=== PATIENT | female | born 1935 | race Caucasian/White ===

== ENCOUNTER 2019-10-30 17:06 | Inpatient (IN) ==
--- NOTE | 2019-10-30 18:22 | PROVIDER DOCUMENTATION ---
HPI-General Adult - General Chief Complaint: Altered Mental Status Stated Complaint: AMS,TIRED Time Seen by Provider: 10/30/19 17:54 Source: patient Allergies/Adverse Reactions: Patient Allergies Allergy/AdvReac Type Severity Reaction Status Date / Time cefaclor [From Ceclor] Allergy SWELLING Verified 10/30/19 17:44 sulfamethoxazole Allergy NAUSEA Verified 10/30/19 17:44 [From Bactrim] trimethoprim [From Bactrim] Allergy NAUSEA Verified 10/30/19 17:44 Home Medications: Home Medication List Medication Instructions Recorded Confirmed Last Taken Type Acetaminophen [Tylenol] 1,000 mg PO Q8H PRN PRN 02/12/18 10/30/19 1 Week Ago History ~02/12/18 Amlodipine [Norvasc] 2.5 mg PO QHS 02/12/18 10/30/19 10/29/19 History Aspirin 81 mg PO QHS 02/12/18 10/30/19 10/29/19 History Bimatoprost [Lumigan] 2.5 ml BOTH EYES QHS 02/12/18 10/30/19 10/29/19 History Calcium Carbonate/Vitamin D3 1 each PO DAILY 02/12/18 10/30/19 10/29/19 History [Oscal 500 + D] Cholecalciferol (Vit D3) [Vitamin 5,000 unit PO DAILY 02/12/18 10/30/19 02/18/18 History D3] Cyanocobalamin (Vitamin B-12) 2,500 mcg PO QHS 02/12/18 10/30/19 10/29/19 H istory [Vitamin B12] Dorzolamide HCl/Timolol Maleat 10 ml BOTH EYES BID 02/12/18 10/30/19 10/30/19 History [Cosopt Eye Drops] Loratadine [Claritin] 10 mg PO QHS 02/12/18 10/30/19 10/29/19 History Omeprazole [Prilosec] 20 mg PO DAILY@0700 02/12/18 10/30/19 10/29/19 History Tramadol [Ultram] 1 tab PO BID 02/12/18 10/30/19 10/29/19 History Mirtazapine [Remeron] 15 mg PO QHS 10/30/19 10/30/19 10/29/19 History Oxazepam 15 mg PO QHS 10/30/19 10/30/19 10/29/19 History Ramipril 5 mg PO QHS 10/30/19 10/30/19 10/29/19 History Rosuvastatin Calcium [Crestor] 10 mg PO QHS 10/30/19 10/30/19 10/29/19 History - History of Present Illness -Gen Adult Nature of Presenting Problems: 84 yr old F, presenting with complaints of AMS. Per the family at bedside, the pt has become increasingly confused over the past month; the family feels there has been an acute worsening in the past week; the pt was complaining of weakness, also noted some possible visual hallucinations on evening; Saturday, she was scheduled for a epidural steroid injection; she had an episode of atrial fibrillation that resolved spontaneously; she had f/u with her PCP after that, but because her confusion and weakness persisted, they called into the business development (they see Dr. Stephens). Dr. Stephens's FIELD MARKETING LEAD recommended they come into the ED today, particularly because Dr. Stephens is human resources operations director today. Onset/Duration: reports: 4 days ago Timing: reports: still present Associated Symptoms: reports: weakness Review of Systems - Adult - REVIEW OF SYSTEMS - ADULT Constitutional: reports: see HPI Eyes: reports: no symptoms reported Ears, Nose, Mouth & Throat: reports: no symptoms reported Cardiovascular: reports: see HPI Respiratory: reports: no symptoms reported Gastrointestinal: reports: no symptoms reported Genitourinary: reports: no symptoms reported Musculoskeletal: reports: see HPI Integumentary: reports: no symptoms reported Neurological: reports: see HPI Psychiatric: reports: no symptoms reported Past History - Adult - PAST MEDICAL HISTORY-ADULT Review of Records: reports: Nursing Assessment Review Cardiovascular: reports: aortic disease, HTN - PRIOR SURGERIES/PROCEDURES Surgical/Procedure History: reports: other - FAMILY HISTORY Family History: reviewed, not pertinent - SOCIAL HISTORY Living Situation: family Physical Exam-General - CONSTITUTIONAL General Appearance: alert, mild distress, thin - EYES Eyes: PERRL/EOMI - HEAD, EARS, NOSE, MOUTH & THROAT HENMT: normocephalic/atraumatic, moist mucous membranes - RESPIRATORY Respiratory: chest non-tender, lungs clear, normal breath sounds - CARDIOVASCULAR Cardiovascular: normal peripheral pulses, regular rate, rhythm - GASTROINTESTINAL (ABDOMEN) Abdominal Exam: normal bowel sounds, non tender, soft - MUSCULOSKELETAL Back Exam: other (paraspinal tenderness) Extremity: no pedal edema - SKIN Integumentary: warm/dry - NEUROLOGIC Neurologic: motor weakness. negative: facial droop, focal weakness - PSYCHIATRIC Psych/Mental Status: anxious, other (disoriented to time) Progress - PLAN OF CARE/RESULTS Progress/Plan/Lab Results: Vital Signs - 8 hr 10/30/19 17:21 Temperature 98.4 F Pulse Rate 94 H Respiratory Rate 16 Blood Pressure 146/69 O2 Sat by Pulse Oximetry 98 Orders Category Date Time Status CHEST-2 VIEWS [RAD] Stat Exams 10/30/19 18:[address] HEAD W/O CONTRAST [CT] Stat Exams 10/30/19 18:20 Ordered CBC WITH ELECTRONIC DIFF [HEME] Stat Lab 10/30/19 18:20 Uncollected CK PROFILE [SP CHEM] Stat Lab 10/30/19 18:20 Uncollected COMPREHENSIVE METABOLIC PANEL [CHEM] Stat Lab 10/30/19 18:20 Uncollected TROPONIN T Stat Lab 10/30/19 18:20 Uncollected URINALYSIS W/POSS RFLX CULT [URINALYSIS] Stat Lab 10/30/19 18:20 Uncollected EKG [EKG] Stat Ther 10/30/19 18:20 Ordered Result Diagrams: 10/30/19 19:13 10/30/19 19:13 - REASSESSMENT Reassessment #1 Time Reassessed: 21:15 (Spoke with Dr. Feng; he agrees to accept the pt for observation; he spoke with the pt at bedside, who agrees to stay for additional monitoring on telemetry. ) - CONSULTS/PCP/HOSPITALIST Notification #1 *Consult/PCP/Hospitalist*: Dr. Feng Consult Disposition: Admit Departure - Departure Date of Disposition Decision: 10/30/19 Time of Disposition Decision: 21:36 DIAGNOSIS: AMS (altered mental status) Qualifiers: Altered mental status type: disorientation Qualified Code(s): R41.0 - Disorientation, unspecified Disposition: ADMITTED INPATIENT 09 Certified Medical Emergency: Emergent Condition: Fair Referrals and Follow-Ups: Lino Henriquez MD [Primary Care Provider] - - Critical Care Note This patient required my direct & personal management of CC.: No Attestation - Physician/ MARIO Attestation Patient care was provided by Advanced Practice Provider:: No The physician spent face to face time with patient:: Yes Advanced Practice Provider documentation review:: Supervising physician onsite and consulted in the evaluation and care of this patient. The physician did have a face to face encounter with the patient.
--- NOTE | 2019-10-30 18:48 | Diag Imaging Result Doc PS360 ---
EXAM: CT HEAD W/O CONTRAST INDICATION: AMS TECHNIQUE: This exam was performed using automated exposure control, adjustment of mA or kV according to patient size, and/or use of iterative reconstruction technique. 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 There is no definite acute infarct given the limited sensitivity of CT versus MRI. There is no discrete intracranial mass, mass effect, or intracranial hemorrhage. The surrounding soft tissues and bony structures are essentially unremarkable. IMPRESSION: Stable chronic appearing white matter changes. No definite acute intracranial pathology by CT. Electronically signed by Miguelangel Gray 10/30/2019 6:46 PM
--- NOTE | 2019-10-30 19:06 | Diag Imaging Result Doc PS360 ---
EXAM: CHEST-2 VIEWS INDICATION: AMS TECHNIQUE: 2 views COMPARISON: 12/28/2014 FINDINGS: There is evidence of prior granulomatous disease, stable. The lungs are grossly clear. There is no discrete pleural fluid collection or pneumothorax. The cardiomediastinal silhouette and central vasculature are grossly unremarkable. IMPRESSION: No evidence of acute pathology by plain radiograph. Electronically signed by Miguelangel Gray 10/30/2019 7:04 PM
[2019-10-30 19:27] LABS: BASO# 0.04 X1000 (0.0-0.2); BASO% 0.2 % (0.0-0.8); EOS# 0.02 X1000 (0.0-0.7); EOS% 0.1 % (0.0-10.0); HEMATOCRIT 27.1 % (37.0-47.0); HEMOGLOBIN 8.5 g/dL (12.0-16.0); IMM GRAN# 0.84 X1000 (0.0-0.04); IMM GRAN% 4.2 % (0.0-0.5); LYMPH# 3.98 X1000 (1.2-3.4); LYMPH% 19.7 % (20.5-51.1); MCHC 31.4 g/dL (33-37); MCV 95.8 FL (81-99); MONO# 3.05 X1000 (0.11-0.59); MONO% 15.1 % (1.7-9.3); MPV 9.6 FL (7.4-10.4); NEUT# 12.29 X1000 (1.4-6.5); NEUT% 60.7 % (42.2-75.2); PLT 317 X1000 (130-400); RBC 2.83 XMIL (4.2-5.4); RDW 12.7 % (11.5-14.5); WBC 20.22 X1000 (4.8-10.8)
[2019-10-30 20:02] LABS: AGAP 14; ALB/GLOB RATIO 1.8; ALBUMIN 3.5 g/dL (3.5-5.0); ALKALINE PHOSPHATASE 70 U/L (32-104); BUN 29 mg/dL (8-22); CALCIUM 9.1 mg/dL (8.8-10.2); CHLORIDE 108 mmol/L (98-107); CK PROFILE 46 U/L (24-173); COSMO 294; CREATININE 1.3 mg/dL (0.5-0.9); ESTIMATED GFR 39; GLUCOSE 114 mg/dL (70-104); GOT 10 U/L (10-30); GPT 7 U/L (10-36); POTASSIUM 4.2 mmol/L (3.5-5.1); SODIUM 144 mmol/L (136-145); TCO2 22 mmol/L (25-35); TOTAL BILIRUBIN < 0.15 mg/dL (0.20-1.00); TOTAL PROTEIN 5.5 g/dL (6.3-8.3)
[2019-10-30 20:55] LABS: URINE SOURCE CLEAN CATCH
[2019-10-30 21:05] LABS: BILIRUBIN URINE NEGATIVE (NEGATIVE); BLOOD URINE NEGATIVE (NEGATIVE); COLOR YELLOW; GLUCOSE URINE NEGATIVE (NEGATIVE); KETONE URINE NEGATIVE (NEGATIVE); LEUKOCYTES URINE NEGATIVE (NEGATIVE); NITRITE URINE NEGATIVE (NEGATIVE); PROTEIN URINE TRACE mg/dL (NEGATIVE); SP GRAVITY URINE 1.023; TURBIDITY URINE CLEAR (CLEAR); UROBILINOGEN URINE NORMAL (NORMAL)
[2019-10-30 21:07] LABS: UR EPITHELIAL CELLS <10 /HPF (<10); URINE BACTERIA NEGATIVE /HPF; URINE RBC <10 /HPF (<10); URINE WBC <10 /HPF (<10)
[2019-10-30] MEDS ORDERED: NS 1,000 ML IV ONE (21:16)
[2019-10-30 21:32] LABS: ACETAMINOPHEN < 1.2 ug/mL (10-30); SALICYLATES < 3.00 mg/dL (3-10)
[2019-10-30 21:34] LABS: UR AMPHETAMINES QUAL NONE DETECTED (NONE DETECT); UR BARBITUATES QUAL NONE DETECTED (NONE DETECT); UR BENZODIAZEPIN QUAL NONE DETECTED (NONE DETECT); UR CANNABINOIDS QUAL NONE DETECTED (NONE DETECT); UR COCAINE QUAL NONE DETECTED (NONE DETECT); UR METHADONE QUAL NONE DETECTED (NONE DETECT); UR OPIATES QUAL NONE DETECTED (NONE DETECT); UR OXYCODONE QUAL NONE DETECTED (NONE DETECT); UR PCP QUAL NONE DETECTED (NONE DETECT)
--- NOTE | 2019-10-30 22:11 | EKG Report ---
Test Performed on : 10/30/2019 5:39:02 PM Test Reason : AMS Blood Pressure : / mmHG Vent. Rate : 089 BPM Atrial Rate : 089 BPM P-R Int : 162 ms QRS Dur : 066 ms QT Int : 340 ms P-R-T Axes : 028 -10 -09 degrees QTc Int : 413 ms Normal sinus rhythm. Normal ECG When compared with ECG of 22-JAN-2019 22:12, Criteria for Septal infarct are no longer present Nonspecific T wave abnormality no longer evident in Lateral leads Unconfirmed Result
[2019-10-30] MEDS ORDERED: DILAUDID IV ONE (22:32)
[2019-10-30] MEDS ORDERED: ATARAX PO ONE (22:32)
[2019-10-30] MEDS ORDERED: NORCO-5 PO PRN (23:38)
[2019-10-30] MEDS ORDERED: ZOFRAN IV PRN (23:38)
--- NOTE | 2019-10-31 01:03 | HISTORY AND PHYSICAL ---
PRIMARY CARE PHYSICIAN: Dr. Henriquez. CHIEF COMPLAINT: Confusion, episode of palpitation. HISTORY OF PRESENTING ILLNESS: This is an 84-year-old elderly female with a history of hypertension, hyperlipidemia, chronic low back pain and anxiety disorder, who had presented to the emergency department due to patient having some episodes of where she was confused and apparently it has been worsening and she was also complaining of having weakness. The patient recently had went for an epidural injection and at that time she was told that she was in atrial fibrillation. She had contacted her blindstitch hemmer who recommended the patient come to the hospital for further evaluation and management. At the time of my examination, patient denied any headache, fever, chills, chest pain, hemoptysis, melena, but complained of weakness and just not feeling well. PAST MEDICAL HISTORY: Includes hypertension, hyperlipidemia, chronic low back pain, anxiety. PAST SURGICAL HISTORY: Neck surgery, appendectomy, hysterectomy, cataract surgery, kidney surgery, tonsillectomy. ALLERGIES: Bactrim and cefaclor. CURRENT MEDICATIONS: Include amlodipine 2.5 mg p.o. at bedtime, aspirin 81 mg p.o. at bedtime, Lumigan 2.5 mL drops to each eye at bedtime, mirtazapine 50 mg p.o. at bedtime, omeprazole 20 mg p.o. daily, oxazepam 15 mg p.o. at bedtime, ramipril 5 mg p.o. at bedtime, rosuvastatin 10 mg p.o. at bedtime, tramadol 50 mg p.o. b.i.d. SOCIAL HISTORY: No history of smoking, alcohol or illicit drug use. FAMILY HISTORY: Positive for coronary artery disease in mother. REVIEW OF SYSTEMS: Fourteen point review of systems as listed in HPI. Other systems negative. PHYSICAL EXAMINATION: GENERAL: Cooperative, friendly female. She is resting more comfortably. However, she is complaining of still having back pain. VITAL SIGNS: Temperature 98.4 degrees, pulse 94, respirations 16, blood pressure 146/69. HEENT: Atraumatic, normocephalic. Extraocular movements intact. PERRLA. NECK: No masses. CHEST: Clear to auscultation. CARDIOVASCULAR: Regular rate and rhythm. ABDOMEN: Soft, positive bowel sounds. EXTREMITIES: No edema. NEUROLOGIC: She is awake, alert, oriented x2. GENITOURINARY: No bladder distention. SKIN: Warm. LABORATORIES AND STUDIES: WBCs 20.22, hemoglobin 8.5, hematocrit 27.1, platelets 317,000. Sodium 144, potassium 4.2, chloride 108, CO2 is 22, BUN is 29, creatinine is 1.3, glucose 114. Troponin 0.010. CT of the head shows stable chronic-appearing white matter changes, no definite acute intracranial pathology. Chest x-ray, no evidence of any acute pathology. ASSESSMENT: An 84-year-old elderly female with a history of hypertension, hyperlipidemia, chronic low back pain, who had presented to emergency department due to episodes of having confusion and worsening weakness. The patient also recently had an episode while she was getting epidural of some palpitations and suspected atrial fibrillation. She had contacted her blindstitch hemmer who recommended the patient to come to the hospital for further evaluation and management. 1. Generalized weakness. 2. Mild dehydration. 3. Episode of atrial fibrillation. 4. Leukocytosis probably from recent epidural injection. 5. Mild cognitive impairment. 6. Chronic low back pain. 7. Hypertension. PLAN: 1. We will admit patient to medical floor with telemetry. 2. Continue with supportive treatment with gentle hydration, antiemetics. 3. Continue with neuro checks. 4. Continue to monitor patient on telemetry, and consult Cardiology and repeat EKG in the morning. 5. We will give patient adequate pain control. 6. We will monitor her white blood cell count. 7. We will monitor blood pressure, resume antihypertensive agent. 8. Put patient on DVT prophylaxis with SCDs. 9. We will continue to follow, reassess and make further recommendation based on patient's clinical course. cc: MD Lino Wharton MD
[2019-10-31] MEDS: NS 1,000 ML IV SCH ×2 (01:20→13:33)
[2019-10-31] MEDS ORDERED: PRILOSEC PO SCH (07:00)
[2019-10-31 07:28] LABS: BASO# 0.02 X1000 (0.0-0.2); BASO% 0.1 % (0.0-0.8); EOS# 0.01 X1000 (0.0-0.7); EOS% 0.1 % (0.0-10.0); HEMATOCRIT 24.1 % (37.0-47.0); HEMOGLOBIN 7.3 g/dL (12.0-16.0); IMM GRAN% 4.6 % (0.0-0.5); LYMPH# 1.69 X1000 (1.2-3.4); LYMPH% 11.2 % (20.5-51.1); MCH 29.4 PG (27-31); MCHC 30.3 g/dL (33-37); MCV 97.2 FL (81-99); MONO# 3.29 X1000 (0.11-0.59); MONO% 21.7 % (1.7-9.3); MPV 9.7 FL (7.4-10.4); NEUT# 9.43 X1000 (1.4-6.5); NEUT% 62.3 % (42.2-75.2); PLT 259 X1000 (130-400); RBC 2.48 XMIL (4.2-5.4); RDW 12.6 % (11.5-14.5); WBC 15.14 X1000 (4.8-10.8)
[2019-10-31 07:35] LABS: CREATININE 0.9 mg/dL (0.5-0.9); POTASSIUM 3.6 mmol/L (3.5-5.1)
[2019-10-31 07:36] LABS: CALCIUM 6.9 mg/dL (8.8-10.2)
[2019-10-31 07:57] LABS: ANISOCYTOSIS 1+; LYMPHS 19 % (21-51); MONO 14 % (1-9); SEGS 67 % (42-75)
[2019-10-31] MEDS ORDERED: COSOPT OPHTH SOLN SCH (09:00)
[2019-10-31] MEDS ORDERED: OSCAL 500 + D PO SCH (09:00)
[2019-10-31] MEDS ORDERED: VITAMIN D PO SCH (09:00)
[2019-10-31 11:23] VITALS: BP 148/70
[2019-10-31 12:58] LABS: AGAP 11; ALB/GLOB RATIO 1.7; ALBUMIN 3.2 g/dL (3.5-5.0); ALKALINE PHOSPHATASE 59 U/L (32-104); BUN 18 mg/dL (8-22); CALCIUM 8.2 mg/dL (8.8-10.2); CHLORIDE 110 mmol/L (98-107); COSMO 281; ESTIMATED GFR 53; GLUCOSE 89 mg/dL (70-104); GOT 18 U/L (10-30); GPT 11 U/L (10-36); IRON SATURATION 22 %; POTASSIUM 4.2 mmol/L (3.5-5.1); SODIUM 140 mmol/L (136-145); TCO2 19 mmol/L (25-35); TIBC 251 ug/dL; TOTAL BILIRUBIN < 0.15 mg/dL (0.20-1.00); TOTAL IRON 56 ug/dL (49-151); TOTAL PROTEIN 5.1 g/dL (6.3-8.3); UNBOUND IRON 195 ug/dL (112-346)
[2019-10-31 14:10] LABS: FREE T4 1.15 ng/dL (0.93-1.70); TSH 3.11 uIUmL (0.27-4.20)
[2019-10-31 14:47] LABS: FERRITIN 65 ng/mL (13-150)
--- NOTE | 2019-10-31 15:37 | DISCHARGE SUMMARY ---
ADMISSION DATE: 10/30/2019 DISCHARGE DATE: 10/31/2019 ADMISSION DIAGNOSIS: 1. Confusion. 2. Episodes of palpitations. DISCHARGE DIAGNOSES: 1. Alteration of mental status, improving. 2. Questionable recent history of atrial fibrillation, resolved. 3. Leukocytosis secondary to recent epidural injection. 4. Anemia. 5. Chronic low back pain. 6. Hypertension. CONSULTATIONS: Dr. Stephens with Cardiology was consulted for further evaluation and management of questionable history of atrial fibrillation. PROCEDURES: 1. A chest x-ray was performed on 10/30/2019 which revealed no evidence of acute pathology. 2. CT scan of the head was performed on 10/30/2019 which revealed stable chronic appearing white matter changes. No definite acute intracranial pathology by CT. HISTORY AND PHYSICAL EXAMINATION: See admit note. PHYSICAL EXAMINATION PRIOR TO DISCHARGE: Temperature 97.7 degrees, heart rate 75, respirations 18, blood pressure is 148/70. General: No acute distress. Cardiovascular: Regular rate and rhythm. No significant murmurs, rubs, or gallops. Pulmonary: Clear to auscultation bilaterally. Abdomen: Soft, nontender, nondistended. Positive bowel sounds. Extremities: Moves all extremities well. No significant clubbing, cyanosis, or edema. Dermatologic: Evaluation reveals no evidence of rash. LABORATORY DATA: Prior to discharge. White blood cell count 15.14, hemoglobin 7.3, hematocrit 24.1, platelet count 259,000. Sodium 140, potassium 4.2, chloride 110, bicarb 19, BUN 18, creatinine 1.0, glucose 89, calcium 8.2, total bilirubin less than 0.15, total protein 5.1, albumin 3.2, alkaline phosphatase 59, AST 18, ALT 11. Total iron 56, percent saturation 22, UIBC 195, folate 5.8, TSH 3.11, free T4 is 1.15. HOSPITAL COURSE: Patient was admitted as per history and physical examination. Hospital course per condition is as follows. 1. Generalized weakness-upon admission, patient was noted to have generalized weakness. With IV hydration, patient's condition improved. Full evaluation was pursued as described above. Patient was found to have a considerable anemia. This will be addressed as noted below. 2. Anemia-upon admission to the hospital, patient was noted to have a moderate anemia. With IV hydration, patient's hemoglobin and hematocrit dropped. The patient has had no evidence of blood loss. She denies hematochezia or melena. Per report, her colonoscopy is up-to-date. The patient recently had an epidural procedure to her lumbar spine. There is no evidence of hematoma formation. Anemia panel was drawn. Patient was found to have both iron and folic acid deficiencies. The patient will be discharged home on folic acid and iron replacement. I have encouraged close followup with Dr. Henriquez. Stool evaluations may be warranted. 3. Mild dehydration-patient has achieved improvement with IV hydration. 4. Alteration of mental status-patient has baseline mild cognitive impairment. Recently, patient has experienced increasing symptoms. The question is raised whether this is secondary to anxiety, progressive dementia, or a combination. At this point, we will treat her underlying deficiencies as noted. We will defer further evaluation of her anxiety and memory loss to Dr. Henriquez as an outpatient. 5. Episode of atrial fibrillation-per report, this occurred just prior to her epidural injection. This resolved spontaneously. Dr. Stephens was consulted while hospitalized. Patient remained in a sinus-generated rhythm. She has outpatient followup arranged with him. We will defer management. 6. Leukocytosis-patient was noted to have a considerable leukocytosis without evidence of infection upon admission. This likely is secondary to her epidural injection. This will need to be followed as an outpatient as well. 7. Chronic low back pain-patient is status post epidural injection with some improvement. I have asked patient to avoid aspirin and nonsteroidal anti-inflammatory agents in the setting of a considerable anemia. She will continue as-needed tramadol. 8. Hypertension-patient was maintained on home medications while hospitalized. DISCHARGE CONDITION: Stable. DISPOSITION: Discharge to home. MEDICATIONS: 1. Lumigan eye drops at bedtime. 2. Calcium plus vitamin D once a day. 3. Vitamin B12 500 mcg at bedtime. 4. Cosopt eye drops twice daily. 5. Mirtazapine 15 mg at bedtime. 6. Omeprazole 20 mg daily. 7. Ramipril 5 mg at bedtime. 8. Rosuvastatin 10 mg at bedtime. 9. Acetaminophen 1000 mg every 8 hours as needed. 10. Amlodipine 2.5 mg at bedtime. 11. Colace 100 mg twice daily as needed. 12. Folic acid 1 mg daily. 13. Loratadine 10 mg at bedtime. 14. Iron sulfate 325 mg daily. 15. Oxazepam 15 mg at bedtime. FOLLOWUP: The patient is to follow up with Dr. Henriquez next week. cc: MD Lino Downing MD
[2019-10-31] MEDS ORDERED: REMERON PO SCH (21:00)
[2019-10-31] MEDS ORDERED: ASPIRIN PO SCH (21:00)
[2019-10-31] MEDS ORDERED: ALTACE PO SCH (21:00)
[2019-10-31] MEDS ORDERED: LUMIGAN 0.01% OPH SOLUTION BOTH EYES SCH (21:00)
[2019-10-31] MEDS ORDERED: CRESTOR PO SCH (21:00)
[2019-10-31] MEDS ORDERED: VITAMIN B-12 PO SCH (21:00)
--- NOTE | 2019-10-31 21:07 | CONSULTATION ---
DATE OF CONSULTATION: 10/31/2019 IMPRESSION: 1. Reported transient atrial fibrillation in orthopedic clinic more than a week ago. ECG tracings not available. Patient has been documented to be in sinus rhythm in Dr. Henriquez's office earlier this week and in sinus rhythm presently. There is no past history of atrial fibrillation. 2. Recent mild confusion. This apparently has been a chronic issue as patient has had some tendency for memory issues and mild confusion in the past. 3. Chronic fatigue. Previous noninvasive cardiovascular studies had demonstrated negative stress myocardial perfusion study and echocardiography showing normal left ventricular function with mild to moderate aortic regurgitation. 4. Anxiety disorder. 5. Hypertension. 6. Hyperlipidemia. RECOMMENDATIONS: 1. Given that patient has been consistently in sinus rhythm on telemetry observation and her symptoms of transient confusion are somewhat longstanding, it is reasonable for her to be discharged to home to have followup as an outpatient. 2. Given that atrial fibrillation has not been well documented, recommend continuing aspirin p.o. daily pending further clarification of the significance of the ECG strip reportedly obtained in orthopedic office 1 week ago. HISTORY: This 84-year-old white female with past history of hypertension, hyperlipidemia, anxiety disorder, mild to moderate aortic regurgitation and fatigue as well as chronic back disorder was admitted through emergency room yesterday p.m. after she presented relating some issues with inability to perform more complex tasks such as balancing checkbook. She had become concerned regarding the possibility of mini strokes given that a week ago she was told she appeared to be in atrial fibrillation transiently in orthopedic doctors office. She has no prior history of atrial fibrillation or palpitations. All previous ECGs available demonstrate sinus rhythm. She has chronic back disorder and was in the [facility] in [place] to have a back injection. She was thought to have atrial fibrillation and back injection was initially going to be postponed. However, after further review it was decided to go ahead and do back injection as her atrial fibrillation was no longer present. ECG strips of this visit are not available. She contacted her primary care physician Dr. Henriquez this past week and had followup in his office. Reportedly ECG in his office demonstrated normal sinus rhythm. She has been somewhat apprehensive over the past week regarding possibility of atrial fibrillation. She has had this chronic tendency for mild confusion, memory loss and occasional difficulty with complex tasks. The report has been some consideration of pursuing neurology consult regarding this. At any rate, she was observed to have some difficulty with balancing her checkbook and concerns were generated on part of the family regarding possible mini strokes. She notified our office and it was unclear as to what was going on. She was referred to the emergency room for evaluation. There has been no chest pain or palpitations. PAST MEDICAL HISTORY: 1. Chronic fatigue. 2. Anxiety disorder. 3. Mild to moderate aortic regurgitation. 4. Hypertension. 5. Hyperlipidemia. 6. Chronic lower back disorder with chronic low back pain. PAST SURGICAL HISTORY: Includes unspecified neck surgery, appendectomy, hysterectomy, cataract surgery, unspecified kidney surgery, tonsillectomy. ALLERGIES: She is allergic or intolerant to Bactrim and cefaclor. MEDICATIONS PRIOR TO ADMISSION: As listed. It is noteworthy that she recently was started on an anxiolytic oxazepam to be taken at bedtime for sleep. SOCIAL HISTORY: She does not smoke or use alcohol. FAMILY HISTORY: Negative for premature coronary disease. REVIEW OF SYSTEMS: Pulmonary: Negative. Gastrointestinal: Negative. Constitutional: Negative. Remainder review of systems negative/noncontributory with 14 total systems reviewed. PHYSICAL EXAMINATION: General: This is a somewhat anxious-appearing, elderly female in no distress. Vital signs: Blood pressure 140/70, heart rate 75 and regular with ECG monitor showing sinus rhythm. Oxygen saturation 99%. HEENT: Extraocular movements intact. Mucous membranes are moist. Neck: Supple without jugular distention. There are no carotid bruits. Chest: Clear to auscultation bilaterally. Cardiac Exam: Reveals a regular rate and rhythm without appreciable murmur or gallop. There is no evidence of peripheral edema. Neurologic: Reveals her to be awake and responsive. She is oriented to person, place and time. Speech is fluent. She moves all 4 extremities equally well. Skin: Warm, dry. Psych: Reveals her to be somewhat anxious. DATA: Twelve lead EKG demonstrates normal sinus rhythm and is within normal limits. Head CT scan reports stable chronic appearing white matter changes. No acute intracranial pathology present. LABORATORY DATA: Includes a white blood cell count of 15.14, hematocrit 24.1, platelet count [* Sodium 143, potassium 3.6, chloride 113, carbon dioxide 18, BUN 18, creatinine 0.9. Troponin T less than 0.01. cc: MD Lino Espino MD MTDD
--- NOTE | 2019-11-02 07:00 | EKG Report ---
Test Performed on : 10/31/2019 05:56:31 AM Test Reason : chest pain Blood Pressure : / mmHG Vent. Rate : 068 BPM Atrial Rate : 068 BPM P-R Int : 184 ms QRS Dur : 068 ms QT Int : 402 ms P-R-T Axes : 043 009 004 degrees QTc Int : 427 ms Normal sinus rhythm. Normal ECG When compared with ECG of 30-OCT-2019 17:39, (Unconfirmed) No significant change was found Confirmed by Dario CHUNG, Dean ([id number]) on 11/02/2019 9:19:16 AM
== END 2019-10-31 15:52 | disposition home or self-care (01) | DRG 641 ==
LOC: ED 17:06 → 4N 22:38 → SUATTDRO 22:38
PROVIDERS: ADMIT Internal Medicine; ATTEND Internal Medicine